=== PATIENT | male | born 1980 | race Two or more races ===

== ENCOUNTER 2024-02-10 15:00 | Emergency (ER) | payer OTHER ==
[~2024-02-10] VITALS: Ht 167.6 cm; Wt 86.2 kg
[2024-02-10] MEDS ORDERED: ALTOPREV40 MG (15:41)
[2024-02-10] MEDS ORDERED: LISINOPRIL5 MG (15:42)
[2024-02-10] MEDS ORDERED: HUMALOG100 UNIT/2 (15:43)
[2024-02-10] MEDS ORDERED: INTESTINEX680 M1 PO (18:24)
[2024-02-10] MEDS ORDERED: CIPRO500 MG PO (18:24)
== END 2024-02-10 18:35 ==
LOC: ER 15:01
DX: S80.811A Abrasion, right lower leg, initial encounter (principal); X58.XXXA Exposure to other specified factors, initial encounter; Y93.89 Activity, other specified; Y92.89 Other specified places as the place of occurrence of the external cause; Y99.8 Other external cause status; E11.9 Type 2 diabetes mellitus without complications; Z79.4 Long term (current) use of insulin; Z88.0 Allergy status to penicillin